=== PATIENT | male | born 1950 | race Caucasian/White ===

== ENCOUNTER 2017-01-19 09:04 | Inpatient (IN) | payer OTHER ==
[2016-12-18 11:32] VITALS: BMI 33.0
--- NOTE | 2016-12-18 12:18 | PAT Medication Instructions ---
Service Date Dec 18, 2016. Current Home Medication List Aspirin (Aspirin Ec), 81 MG PO QAM Docusate Sodium (Docusate Sodium), 1 CAP PO QAM Duloxetine HCl (Cymbalta), 60 MG PO QAM Esomeprazole Magnesium (Nexium), 40 MG PO QAM Glucosamine-Chondroitin (Osteo Bi-Flex Regular Str), 1 TAB PO QAM Ibuprofen Tab (Motrin), 600 MG PO TID PRN for Pain Multivitamin (Multivitamin), 1 TAB PO QAM Ondansetron Hcl (Zofran), 4 MG PO Q6 PRN for Nausea Medication Instructions For Your Scheduled Surgery Ibuprofen Tab (Motrin), 600 MG PO TID PRN for Pain (not taking currently) - Hold the following medications 7 days prior to surgery: Glucosamine-Chondroitin (Osteo Bi-Flex Regular Str), 1 TAB PO QAM Advil - Hold the following medications the morning of surgery: Multivitamin (Multivitamin), 1 TAB PO QAM Docusate Sodium (Docusate Sodium), 1 CAP PO QAM - Take the following medications the morning of surgery with a sip of water: Ondansetron Hcl (Zofran), 4 MG PO Q6 PRN for Nausea (only if needed) Esomeprazole Magnesium (Nexium), 40 MG PO QAM Duloxetine HCl (Cymbalta), 60 MG PO QAM Aspirin (Aspirin Ec), 81 MG PO QAM If you have any questions please call us at [phone] or [phone] ( [place]adette) or [phone]
[2016-12-18 13:14] LABS: BASO % 0.2 %; BASO ABS # 0.01 K/uL (0-0.2); COMPLETE YES; EOS % 3.8 %; IG% 0.3 %; LYMPH % 41.1 %; LYMPH ABS # 2.73 K/uL (1.2-3.4); MEAN CELL VOLUME 88.9 fL (80-100); MEAN CORPUSCULAR HEMOGLOBIN 30.2 pg (25-34); MEAN CORPUSCULAR HGB CONC 33.9 g/dl (32-36); MEAN PLATELET VOLUME 9.5 fL (7.4-10.4); MONO % 11.1 %; NEUT % 43.5 %; PLATELET COUNT 172 K/uL (130-400); RED BLOOD COUNT 4.61 M/uL (4.7-6.1); WHITE BLOOD COUNT 6.64 K/uL (4.8-10.8)
--- NOTE | 2016-12-18 13:18 | DIAGNOSTIC IMAGING REPORT ---
CHEST PREADMISSION(PA/LAT) CLINICAL HISTORY: Preoperative evaluation. COMPARISON STUDY: No previous studies for comparison. FINDINGS: An anterior cervical spine fusion is incidentally noted. There is no pneumothorax or pleural effusion. Lung volumes are normal. Pulmonary vascularity is normal. Cardiomediastinal silhouette is normal. IMPRESSION: No acute cardiopulmonary findings. Electronically signed by: Mauri Rodriguez M.D. 12/18/2016 1:16 PM Dictated Date/Time: 12/18/2016 1:16 PM
[2016-12-18 13:20] LABS: URINE APPEARANCE CLEAR (CLEAR); URINE BILIRUBIN NEG (NEG); URINE COLOR YELLOW; URINE NITRITE NEG (NEG); URINE PH 5.5 (4.5-7.5); URINE SPECIFIC GRAVITY 1.019 (1.000-1.030); UROBILINOGEN NEG (NEG); ZZUR CULT IF INDIC CLEAN CATCH NO
[2016-12-18 13:24] LABS: PARTIAL THROMBOPLASTIN RATIO 1.1; PROTHROMBIN TIME (PATIENT) 10.4 SECONDS (9.0-12.0)
[2016-12-18 13:25] LABS: MANUAL MICROSCOPIC REQUIRED? NO; REVIEW REQ? NO
[2016-12-18 13:42] LABS: BUN/CREATININE RATIO 18.1 (10-20); CALCIUM 8.8 mg/dl (8.5-10.1); CREATININE 0.96 mg/dl (0.60-1.40); POTASSIUM 4.5 mmol/L (3.5-5.1)
--- NOTE | 2017-01-16 09:01 | HISTORY & PHYSICAL EXAMINATION ---
DATE OF ADMISSION: 01/19/2017 CHIEF COMPLAINT: Left knee pain. HISTORY OF PRESENT ILLNESS: Sylvester is a 66-year-old male with a year history of pain in his left knee. The patient rates his pain at 9/10. He has pain with his daily activities. He has limited standing and walking tolerance. Pain is worse with weightbearing. The patient has been taking ibuprofen, injections and wearing a brace without relief. He has failed conservative treatment and is scheduled for a left knee replacement. PAST MEDICAL HISTORY: Coronary fistula, sleep apnea, anxiety and acid reflux. He denies diabetes or DVT. PAST SURGICAL HISTORY: Right lung middle lobectomy, appendectomy, cholecystectomy, sinus surgery and knee arthroscopy. SOCIAL HISTORY: The patient drinks wine occasionally. He quit smoking in 1970. He lives in a single story home. He is retired and lives with his . FAMILY HISTORY: Negative for DVT. MEDICATIONS: Esomeprazole 40 mg, duloxetine 60 mg, Sada aspirin 81 mg, Osteo Bi-Flex, Centrum Silver, docusate and ibuprofen 600 mg. ALLERGIES: DEMEROL. REVIEW OF SYSTEMS: See HPI. Ten other systems reviewed, all negative. PHYSICAL EXAMINATION: VITAL SIGNS: Height 6 feet 1 inch, weight 250 pounds, and BMI is 33. GENERAL: This is a well-developed and well-nourished male, who is alert and oriented x3. Mood and affect are appropriate. HEENT: Normocephalic and atraumatic. Mucous membranes are moist and intact. NECK: Supple without lymphadenopathy. HEART: Regular rate and rhythm without murmurs, rubs or gallops. LUNGS: Clear to auscultation without wheezes or rhonchi. ABDOMEN: Soft and nontender. Bowel sounds are equal and active. EXTREMITIES: No ecchymosis, redness or warmth. Thigh and calf are soft and nontender. He has varus deformity. Range of motion is from 5-100 degrees with no laxity. He is neurovascularly intact with +5/5 strength. X-RAY EXAMINATION: AP and lateral views show joint space narrowing and osteophyte formation. IMPRESSION: Degenerative joint disease, left knee. PLAN: The patient will be admitted for a left total knee arthroplasty. We will plan on aspirin for DVT prophylaxis. The patient's PCP is Dr. Donaldson in [facility]. He will likely be doing outpatient physical therapy.
[~2017-01-19] VITALS: Ht 185.4 cm; Wt 113.2 kg
[~2017-01-19 09:04] MED LIST: ACETAMINOPHEN 500 MG TAB PO SCH; ASPI81TA28 PO; BUPIVACAINE 0.25% 30 ML VIAL ONE; BUPIVACAINE 0.5 % 5 MG/1 ML PF 10ML VIAL ONE; CEFAZOLIN 2000 MG/60 ML D5W 60 ML IV SCH; CYM/30 PO; CeleBREX 200 MG CAP PO SCH; DEXAMETHASONE 4 MG TAB PO SCH; DOCU100C31 PO; FAMOTIDINE 20 MG TAB PO SCH; GABAPENTIN 300 MG CAP PO SCH; GLUCTAB18 PO; IBUP-1427 PO; LACTATED RINGER'S 1000ML 1,000 ML IV SCH; LACTATED RINGER'S 1000ML 500 ML IV ONE; LACTATED RINGER'S 1000ML IV SCH; METOCLOPRAMIDE HCL 10 MG TAB PO SCH; MULT-506 PO; NXM/40 PO; ONDA4TAB46 PO; OXYCODONE HCL 10 MG TABCR (OXYCONTIN) PO SCH; POLYMYXIN B SULFATE 100,000 UNITS in NSS 100ML IR SCH; ROPIVACAINE 5MG/ML 30 ML 150 MG, BUPIVACAINE/EPINEPHR 0.5% MPF 30 ML, KETOROLAC TROMETH... INFIL SCH; VANCOMYCIN INJ 400 MG in NSS 100ML IR SCH
[2017-01-19 09:31] VITALS: BP 169/98; PULSE 79; TEMP 36.6; O2SAT 97; Ht 185.4 cm; Wt 113.2 kg
[2017-01-19] MEDS ORDERED: MIDAZOLAM HCL 1 MG/ML 2ML VIAL ONE (10:08)
[2017-01-19] MEDS ORDERED: PROPOFOL IV EMULSION 10 MG/ML 20 ML VIAL IV ONE ×2 (10:08→13:20)
[2017-01-19] MEDS ORDERED: FENTANYL CITRATE INJ 50 MCG/1 ML 2 ML VIAL ONE (10:08)
[2017-01-19] MEDS ORDERED: LIDOCAINE HCL 2% 2 ML VIAL (20MG/ML) ONE (10:08)
[2017-01-19] MEDS ORDERED: EpHEDrine SULFATE 50MG/5ML SYR ONE (10:45)
--- NOTE | 2017-01-19 10:59 | History & Physical Bridge Note ---
H&P Re-Evaluation Bridge Note: I have examined the patient, reviewed the History & Physical and in the interval since the performance of the History & Physical I have noted the following changes of clinical significance: No changes noted
[2017-01-19] MEDS ORDERED: BUPIVACAINE/EPINEPHRINE 0.25% 1:200,000 30 ML VIAL ONE (11:37)
[2017-01-19] MEDS ORDERED: ORTHO JOINT ANESTHETIC ONE (11:37)
[2017-01-19] MEDS ORDERED: POVIDONE-IODINE OP SOLN 30 ML BTL ONE (11:38)
[2017-01-19] MEDS ORDERED: BACITRACIN 50000 UNIT VIAL ONE (11:38)
[2017-01-19] MEDS: TRANEXAMIC ACID INJ 1,000 MG in SODIUM CHLORIDE 0.9% 100ML 100 ML IV SCH ×2 (11:46→16:51)
[2017-01-19] MEDS ORDERED: KETOROLAC TROMETHAMINE 30 MG/ML VIAL IV. PRN (13:45)
[2017-01-19] MEDS ORDERED: ATROPINE SULFATE 0.1 MG/ML 5ML SYR IV PRN (13:45)
[2017-01-19] MEDS ORDERED: ONDANSETRON INJ 2 MG/ML 2 ML VIAL IV PRN ×2 (13:45→14:00)
[2017-01-19] MEDS ORDERED: EpHEDrine SULFATE INJ 50 MG/ML AMP IV PRN (13:45)
[2017-01-19] MEDS ORDERED: HYDROmorphone INJ 2 MG/ML SYR/VIAL IV PRN (13:45)
[2017-01-19] MEDS ORDERED: PHENYLEPHRINE 100MCG/ML 5ML SYR IV PRN (13:45)
--- NOTE | 2017-01-19 13:50 | [facility] Post Operative Brief Note ---
Immediate Operative Summary Operative Date Jan 19, 2017. Pre-Operative Diagnosis Left Knee Degenerative Joint Disease Post-Operative Diagnosis Left Knee Degenerative Joint Disease Procedure(s) Performed Left Total Knee Arthroplasty, Cemented Surgeon Dr. Jeffery Dalton Production Recovery Operator Surgeon(s) Mei Pearson PA-C Estimated Blood Loss 75 mL Findings djd Specimens A: Left Knee Bone and Tissue Complication(s) None Disposition Recovery Room / PACU
[2017-01-19] MEDS ORDERED: SOD PHOSPHATE/SOD BIPHOSPHATE ENEMA 132 ML BTL PR PRN (14:00)
[2017-01-19] MEDS ORDERED: MAGNESIUM HYDROXIDE SUSP 30 ML UDC PO PRN (14:00)
[2017-01-19] MEDS ORDERED: TRAMADOL HCL 50 MG TAB PO PRN (14:00)
[2017-01-19] MEDS ORDERED: BISACODYL 10 MG SUPP PR PRN (14:00)
[2017-01-19] MEDS ORDERED: DiphenhydrAMINE HCL 50 MG/ML VIAL IV PRN (14:00)
[2017-01-19] MEDS ORDERED: ZOLPIDEM TARTRATE 5 MG TAB PO PRN (14:00)
[2017-01-19] MEDS ORDERED: METOCLOPRAMIDE HCL INJ 5 MG/ML 2 ML VIAL IV PRN (14:00)
[2017-01-19] MEDS ORDERED: ALUMINUM/MAGNESIUM/SIMETH (MAALOX MAX) 30 ML UDC PO PRN (14:00)
[2017-01-19] MEDS ORDERED: KETOROLAC TROMETHAMINE 15 MG/ML VIAL IV. PRN (14:00)
[2017-01-19] MEDS ORDERED: MoRPHine SULFATE 2 MG/ML CARP IV PRN (14:00)
--- NOTE | 2017-01-19 14:47 | DIAGNOSTIC IMAGING REPORT ---
PORTABLE LEFT KNEE 2 VIEWS CLINICAL HISTORY: Postop knee arthroplasty COMPARISON: None. DISCUSSION: There are postsurgical changes of a total left knee arthroplasty and patellar resurfacing. The femoral and tibial components appear well seated. No acute fractures are visualized. There are overlying surgical drains. There is air within the soft tissues consistent with recent surgery IMPRESSION: Postsurgical changes of a total left knee arthroplasty. Electronically signed by: Franc Mitchell M.D. 01/19/2017 2:46 PM Dictated Date/Time: 01/19/2017 2:45 PM
--- NOTE | 2017-01-19 15:49 | Anesthesiology Progress Note ---
Anesthesia Post Op Note Date & Time Jan 19, 2017 at 15:50 Vital Signs Pain Intensity: 0 Vital Signs Past 12 Hours Date Time Temp Pulse Resp B/P Pulse Ox O2 Delivery O2 Flow Rate FiO2 01/19/17 15:35 79 15 123/77 94 Nasal Cannula 2 01/19/17 15:25 75 15 120/74 97 Nasal Cannula 2 01/19/17 15:15 73 13 119/71 98 Nasal Cannula 2 01/19/17 15:05 74 16 114/71 94 Nasal Cannula 2 01/19/17 14:55 73 14 117/65 93 Nasal Cannula 2 01/19/17 14:45 74 12 108/62 97 Nasal Cannula 2 01/19/17 14:35 73 15 105/69 97 Nasal Cannula 2 01/19/17 14:25 80 12 111/67 95 Nasal Cannula 2 01/19/17 14:18 36.2 74 20 109/64 93 Nasal Cannula 2 01/19/17 09:31 36.6 79 20 169/98 97 Room Air Notes Mental Status: alert / awake / arousable, participated in evaluation Pt Amnestic to Procedure: Yes Nausea / Vomiting: adequately controlled Pain: adequately controlled Airway Patency, RR, SpO2: stable & adequate BP & HR: stable & adequate Hydration State: stable & adequate Neuraxial Anesthesia: was administered, sensory block is resolving Anesthetic Complications: no major complications apparent
--- NOTE | 2017-01-19 16:28 | OPERATIVE REPORT ---
DATE OF OPERATION: 01/19/2017 PREOPERATIVE DIAGNOSIS: Degenerative arthritis left knee, posttraumatic. POSTOPERATIVE DIAGNOSIS: Same. PROCEDURE: Left total knee replacement with patient matched implant. SURGEON: Jeffery Dalton MD CERTIFIED NURSING ATTENDANT: ALAN Watkins ANESTHESIA: Spinal. BLOOD LOSS: 75 mL. REPLACEMENT FLUIDS: 1800 mL crystalloid. DRAINS: Hemovac x2. CULTURES: None. COMPLICATIONS: None. COMPONENTS USED: [place] Knee System: Femur size 8, tibia size 7 x 12, and patella size 41. NOTE: ALAN Watkins was present and assisted throughout due to the complicated nature of this case. She helped with preparation and set up, first assisted throughout and personally closed the capsule, subcutaneous and skin layers and applied the postoperative dressing. DESCRIPTION OF PROCEDURE: Following satisfactory spinal, the patient was supine. A tourniquet was placed, but not inflated. The lower extremity was prepared with ChloraPrep and draped sterilely. Following a surgical time-out, a midline incision was made with a trivector approach. The knee showed severe grade 4 changes throughout most marked in the medial and patellofemoral compartments. The cruciate ligaments were excised. The patient matched femoral block was applied. Femoral distal rotation and resection were set and completed. The 4-in-1 block was used to finish preparation of the femur. The patient matched tibial block was applied. Tibial resection was completed. Patella was freehand cut. Soft tissue balancing was completed and a trial reduction showed good tensioning stability on the collateral ligaments, stable range of motion, and the patella tracked well. The trial components were removed. The capsule was prepared with the orthopedic cocktail and after irrigation, the components were cemented using Simplex G cement. A Betadine soak was performed. After 5 minutes, the Betadine was irrigated. It should be noted the patient had a preoperative 10-degree flexion contracture and was still slightly tight in extension, but had much improved extension. Following irrigation, 2 drains were placed. The arthrotomy was closed with a running suture of 0 V-Loc and reinforced with #1 Vicryl, the subcutaneous tissues with 2-0 V-Loc and the skin with a running subcuticular stitch of 3-0 V-Loc. Dermabond and a dry dressing were applied. The patient was returned to his bed in stable condition. I attest to the content of the Intraoperative Record and any orders documented therein. Any exceptio ns are noted below.
[2017-01-19 17:00] VITALS: BP 137/73; PULSE 85; TEMP 36.8; O2SAT 98
[2017-01-19] MEDS: D5W AND 1/2NSS + 20MEQ KCL 1,000 ML IV SCH (17:01)
[2017-01-19 17:31] VITALS: BP 137/86; PULSE 94; TEMP 37; O2SAT 98
[2017-01-19] MEDS: ACETAMINOPHEN 500 MG TAB PO SCH (17:33)
[2017-01-19 18:32] VITALS: BP 134/71; PULSE 88; TEMP 36.8; O2SAT 96
[2017-01-19 19:27] VITALS: BP 130/78; PULSE 91; TEMP 36.9; O2SAT 97
[2017-01-19] MEDS: CEFAZOLIN IV 2,000 MG in DEXTROSE 5% 50ML 50 ML IV SCH (20:01)
[2017-01-19] MEDS ORDERED: TRANEXAMIC ACID INJ 1,000 MG in SODIUM CHLORIDE 0.9% 100ML 100 ML IV SCH (20:30)
[2017-01-19] MEDS: CeleBREX 200 MG CAP PO SCH (20:47)
[2017-01-19] MEDS: ASPIRIN 81 MG ECTAB PO SCH (20:48)
[2017-01-19] MEDS: OXYCODONE HCL 10 MG TABCR (OXYCONTIN) PO SCH (20:48)
[2017-01-19] MEDS: SENNA 8.6 MG TAB PO SCH (20:49)
[2017-01-19 22:50] VITALS: BP 135/70; PULSE 84; TEMP 36.6; O2SAT 95
[2017-01-20] MEDS: D5W AND 1/2NSS + 20MEQ KCL 1,000 ML IV SCH ×2 (02:54→13:44)
[2017-01-20] MEDS: ACETAMINOPHEN 500 MG TAB PO SCH ×3 (02:54→17:51)
[2017-01-20] MEDS: CEFAZOLIN IV 2,000 MG in DEXTROSE 5% 50ML 50 ML IV SCH (03:02)
[2017-01-20 03:05] VITALS: BP 132/72; PULSE 66; TEMP 36.4; O2SAT 97
[2017-01-20 07:15] LABS: HEMATOCRIT 33.2 % (42-52); MEAN CELL VOLUME 86.2 fL (80-100); MEAN CORPUSCULAR HEMOGLOBIN 29.9 pg (25-34); MEAN CORPUSCULAR HGB CONC 34.6 g/dl (32-36); MEAN PLATELET VOLUME 9.1 fL (7.4-10.4); PLATELET COUNT 177 K/uL (130-400); RED BLOOD COUNT 3.85 M/uL (4.7-6.1); WHITE BLOOD COUNT 16.49 K/uL (4.8-10.8)
[2017-01-20 07:29] VITALS: BP 144/80; PULSE 80; TEMP 36.5; O2SAT 98
[2017-01-20 07:40] LABS: BUN/CREATININE RATIO 19.7 (10-20); CALCIUM 8.1 mg/dl (8.5-10.1); CREATININE 0.97 mg/dl (0.60-1.40); POTASSIUM 4.1 mmol/L (3.5-5.1)
[2017-01-20] MEDS: OXYCODONE HCL 10 MG TABCR (OXYCONTIN) PO SCH ×2 (08:39→20:59)
[2017-01-20] MEDS: PANTOprazole SOD 40 MG TAB PO SCH (08:39)
[2017-01-20] MEDS: MULTIVITAMIN TAB PO SCH (08:39)
[2017-01-20] MEDS: DULOXETINE (CYMBALTA) 30 MG CAP PO SCH (08:39)
[2017-01-20] MEDS: ASPIRIN 81 MG ECTAB PO SCH ×2 (08:39→20:59)
[2017-01-20] MEDS: CeleBREX 200 MG CAP PO SCH ×2 (08:39→21:00)
--- NOTE | 2017-01-20 09:40 | Orthopedic Progress Note ---
Orthopedic Progress Note Date of Service Jan 20, 2017. Subjective Post OP Day: 1 Reports: feeling well, Denies: SOB, calf pain, chest pain, light headedness, nausea / vomiting Objective calves soft nontender, N/V intact, dressing C/D/I, A&O x3, toes mobile, hemovac drainage (275/325CC PER SHIFT) Date Time Temp Pulse Resp B/P Pulse Ox O2 Delivery O2 Flow Rate FiO2 01/20/17 09:20 Room Air 01/20/17 07:35 Room Air 01/20/17 07:29 36.5 80 16 144/80 98 Room Air 01/20/17 03:05 36.4 66 16 132/72 97 Room Air 01/20/17 00:30 Room Air 01/19/17 22:50 36.6 84 16 135/70 95 Room Air 01/19/17 19:27 36.9 91 18 130/78 97 Room Air 01/19/17 18:32 36.8 88 18 134/71 96 Room Air 01/19/17 17:31 37.0 94 18 137/86 98 Nasal Cannula 2.0 01/19/17 17:00 36.8 85 16 137/73 98 Nasal Cannula 2.0 01/19/17 16:30 Nasal Cannula 2.0 01/19/17 16:30 Nasal Cannula 2.0 01/19/17 16:25 37.0 82 15 125/71 98 Nasal Cannula 2 01/19/17 16:15 84 14 122/73 97 Nasal Cannula 2 01/19/17 16:05 90 20 123/80 96 Nasal Cannula 2 01/19/17 15:55 84 13 124/78 97 Nasal Cannula 2 01/19/17 15:45 86 15 126/79 98 Nasal Cannula 2 01/19/17 15:35 79 15 123/77 94 Nasal Cannula 2 01/19/17 15:25 75 15 120/74 97 Nasal Cannula 2 01/19/17 15:15 73 13 119/71 98 Nasal Cannula 2 01/19/17 15:05 74 16 114/71 94 Nasal Cannula 2 01/19/17 14:55 73 14 117/65 93 Nasal Cannula 2 01/19/17 14:45 74 12 108/62 97 Nasal Cannula 2 01/19/17 14:35 73 15 105/69 97 Nasal Cannula 2 01/19/17 14:25 80 12 111/67 95 Nasal Cannula 2 01/19/17 14:18 36.2 74 20 109/64 93 Nasal Cannula 2 Laboratory Results 24 Hours: Test 01/20/17 06:56 Hematocrit 33.2 % Hemoglobin 11.5 g/dL Assessment & Plan Assessment: POD#1 SP LEFT TKA Inhouse Planning Pain Management: Celebrex, Oxycontin, PO Tylenol, Oxy IR DVT Prophylaxis: TEDs, SCDs, ASA Discharge Planning Discharge Planning: home with home health ([facility] DUE TO HIGH DRAIN OUTPUT.)
[2017-01-20 10:59] VITALS: BP 153/71; PULSE 88; O2SAT 98
[2017-01-20 12:22] VITALS: BP 144/79; PULSE 81; TEMP 36.4; O2SAT 96
[2017-01-20] MEDS: OXYCODONE HCL IR 5 MG TAB (IMMEDIATE RELEASE) PO PRN (13:44)
--- NOTE | 2017-01-20 14:22 | Discharge Instructions ---
Discharge Instructions Admission Reason for Admission: Left Knee Degenerative Arthritis Discharge Discharge Diagnosis / Problem: sp left TKA Discharge Goals Goal(s): Decrease discomfort, Improve function, Increase independence Activity Recommendations Activity Limitations: per Instructions/Follow-up section . Instructions / Follow-Up Instructions / Follow-Up ACTIVITY RECOMMENDATIONS: SELF CARE INSTRUCTIONS AFTER TOTAL KNEE REPLACEMENT A. You may need to continue a physical therapy program after discharge from the hospital. There are several options available to you. Your doctor will assist you in selecting the best one for you. 1. An out-patient facility 2 to 3 times a week for therapy or home therapy. 2. Continue working on all exercises taught to you in the hospital. Your goals should be to increase bending of your knee to 90 degrees and beyond and to fully straighten your knee. B. You may progress at your own pace from walking with a walker or crutches to a cane; then to no assistive devices. C. Make walking a part of your daily routine. Be up as much as comfortable with rest periods throughout the day. Rest with leg elevation is very important. Use the ice wrap frequently for the first 3-4 weeks. D. There are no restrictions on activities. You may ride in a car, shop, participate in central supply technician and all social activities. E. Wear the long elastic stockings (GERALD hose) 20 hours a day for 2 weeks after surgery. They can be removed several times a day for laundering and for a bath. F. You may shower, no tub baths until cleared by your doctor. SPECIAL CARE INSTRUCTIONS: VERY IMPORTANT TO READ AND REVIEW A. There are a few signs you need to watch for after you are home. Call [facility] if you notice any of the followin. Increased severe knee pain. Some pain is expected especially when you exercise. 2. Increased swelling in your leg or knee; pain or swelling of the calf muscle in either lower leg. 3. Any fluid drainage from the incision. 4. Shortness of breath or chest pain. B. Please call [facility] at if you have any concerns or questions about your operation or recovery. The doctor or his nurse will return your call promptly. C. You must take antibiotics before dental work, bladder, bowel or other surgery. Your doctor will provide you with a permanent care to carry describing this precaution. IMPORTANT: * REMEMBER TO TAKE ASPIRIN, 81 MG, TWICE DAILY FOR 4 WEEKS UNLESS OTHERWISE DIRECTED. THIS IS YOUR BLOOD THINNER. * HIGH RISK PATIENTS MAY BE PRESCRIBED A STRONGER BLOOD THINNER. THIS WILL BE PROVIDED AT DISCHARGE. * CALL IF INCREASED PAIN, REDNESS, DRAINAGE OR FEVER GREATER THAT 101. * WEAR GERALD HOSE 20 HOURS PER DAY FOR 2 WEEKS. DERMABOND Prineo- This is a mesh tape dressing that is covered with glue. It should remain in place until the incision is properly healed, usually 10-14 days. This dressing is designed to naturally slough off. You may trim the excess mesh tape as it peels off. Incision may be briefly wet in a shower. Dry immediately by blotting with a clean, dry towel. Do not bath or swim until instructed by your doctor. Do not scratch, rub, or pick at the dressing. Do not apply any topical ointments or lotions until dressing is completely removed and/or instructed by your doctor. There may be a small piece of suture material at one end of your incision. Do not pull or trim this. If it is bothersome or catching on clothing, you may cover it with a band-aid. FOLLOW UP VISIT: If appointment is not already scheduled: Please call [facility] to make a follow-up appointment for 2 weeks after your surgery at . Current Hospital Diet Patient's current hospital diet: Regular Diet Discharge Diet Recommended Diet: Regular Diet Procedures Procedures Performed: Left Total Knee Arthroplasty, Cemented Pending Studies Studies pending at discharge: no Medical Emergencies . Who to Call and When: Medical Emergencies: If at any time you feel your situation is an emergency, please call 911 immediately. . Non-Emergent Contact Non-Emergency issues call your: Primary Care Provider . "Provider Documentation" section prepared by Mei Pearson. VTE Core Measure Inpt VTE Proph given/why not?: Other Anticoagulation, [facility] [place], SCD's [place] Drug Monitoring Program Search Results: patient reviewed within database, no issues identified
[2017-01-20 15:38] VITALS: BP 136/69; PULSE 80; TEMP 36.4; O2SAT 99
[2017-01-20] MEDS: SENNA 8.6 MG TAB PO SCH (21:00)
[2017-01-20 23:11] VITALS: BP 150/86; PULSE 76; TEMP 36.7; O2SAT 97
[2017-01-21] MEDS: OXYCODONE HCL IR 5 MG TAB (IMMEDIATE RELEASE) PO PRN ×3 (00:57→12:36)
[2017-01-21] MEDS: ACETAMINOPHEN 500 MG TAB PO SCH ×2 (01:55→10:34)
[2017-01-21] MEDS: PANTOprazole SOD 40 MG TAB PO SCH (07:32)
[2017-01-21 07:40] VITALS: BP 147/89; PULSE 74; TEMP 36.4; O2SAT 97
--- NOTE | 2017-01-21 08:04 | Orthopedic Progress Note ---
Orthopedic Progress Note Date of Service Jan 21, 2017. Subjective Post OP Day: 2 Reports: feeling well, Denies: SOB, calf pain, chest pain, light headedness, nausea / vomiting Objective calves soft nontender, N/V intact, dressing C/D/I, A&O x3, toes mobile Date Time Temp Pulse Resp B/P Pulse Ox O2 Delivery O2 Flow Rate FiO2 01/21/17 07:40 36.4 74 16 147/89 97 Room Air 01/21/17 00:00 Room Air 01/20/17 23:11 36.7 76 16 150/86 97 Room Air 01/20/17 15:45 Room Air 01/20/17 15:38 36.4 80 18 136/69 99 Room Air 01/20/17 12:22 36.4 81 16 144/79 96 Room Air 01/20/17 10:59 88 98 01/20/17 09:20 Room Air Assessment & Plan Assessment: POD#2 SP LEFT TKA Inhouse Planning Pain Management: Celebrex, Oxycontin, PO Tylenol, Oxy IR DVT Prophylaxis: TEDs, SCDs, ASA Discharge Planning Discharge Planning: home with home health ([facility] today)
[2017-01-21] MEDS ORDERED: ACET-1138 PO (08:06)
[2017-01-21] MEDS ORDERED: MORP-157 PO (08:06)
[2017-01-21] MEDS ORDERED: RXC5 PO (08:06)
[2017-01-21] MEDS ORDERED: ONDA4TAB46 PO (08:06)
[2017-01-21] MEDS ORDERED: CLB200 PO (08:06)
[2017-01-21] MEDS ORDERED: SNK PO (08:06)
[2017-01-21] MEDS ORDERED: ASPI81TA28 PO (08:06)
[2017-01-21] MEDS: CeleBREX 200 MG CAP PO SCH (08:46)
[2017-01-21] MEDS: DULOXETINE (CYMBALTA) 30 MG CAP PO SCH (08:46)
[2017-01-21] MEDS: MULTIVITAMIN TAB PO SCH (08:47)
[2017-01-21] MEDS: ASPIRIN 81 MG ECTAB PO SCH (08:47)
[2017-01-21] MEDS: OXYCODONE HCL 10 MG TABCR (OXYCONTIN) PO SCH (08:48)
[2017-01-21] MEDS ORDERED: ACETAMINOPHEN 500 MG TAB PO ONE (10:30)
[2017-01-21 12:26] VITALS: BP 147/89; PULSE 74; TEMP 36.4; O2SAT 97
--- NOTE | 2017-02-02 15:19 | DISCHARGE SUMMARY ---
DISCHARGE DIAGNOSIS: Degenerative joint disease, left knee. SECONDARY DIAGNOSIS: None. CONSULTATIONS: None. COMPLICATIONS: None. PROCEDURE: The patient underwent a left total knee arthroplasty by Dr. Dalton on 01/19/2017. BRIEF HISTORY OF PRESENT ILLNESS: Please see previously dictated history and physical. HOSPITAL SUMMARY: The patient was admitted on the above day for the above procedure. Procedure went without complication. Postop day 1, the patient was feeling well without complaints. He denied chest pain or shortness of breath. Vital signs were stable. He was afebrile. Dressing was clean, dry and intact. He was neurovascularly intact. Calves were soft and nontender. Hemovac drained 275 and 325 mL per shift. Hemoglobin was 1.5. The patient began physical therapy per protocol. Postop day 2, the patient continued to improve. He denied chest pain or shortness of breath. Vital signs were stable. He was afebrile. He continued to progress with physical therapy and was discharged home later that day in stable condition. For further review, please see the chart. Lab, x-ray data and discharge instructions as per chart.
== END 2017-01-21 13:08 | disposition home health service (06) | DRG 470 ==
LOC: ENRESERVDT → ENRESERVTM → C.ACU 09:04 → C.3E 10:30
PROVIDERS: ADMIT Orthopaedic Surgery; ATTEND Orthopaedic Surgery
PROC: 0SRD0J9 Replacement of Left Knee Joint with Synthetic Substitute, Cemented, Open Approach (ICD-10-PCS; principal; 2017-01-19 11:30)
DX: M17.12 Unilateral primary osteoarthritis, left knee (principal); K21.9 Gastro-esophageal reflux disease without esophagitis; Z79.899 Other long term (current) drug therapy; Z79.82 Long term (current) use of aspirin; Z87.891 Personal history of nicotine dependence; Z98.890 Other specified postprocedural states